=== PATIENT | male | born 2000 | race African-American/Black ===

== ENCOUNTER 2021-09-01 00:11 | Emergency (ER) | payer OTHER, SELFPAY ==
--- NOTE | ~2021-09-01 | XR_ITS ---
EXAMINATION: XR ANKLE, LEFT CLINICAL INFORMATION: Injury. COMPARISON: None. TECHNIQUE: AP, lateral, and mortise views of the left ankle. FINDINGS: Circumferential soft tissue swelling adjacent to the medial and lateral malleolus. Nonspecific bony outpouching in the dorsal surface of the talus only visualized on the lateral view. Also, nonspecific cortical irregularities in the medial surface of the talus visualized on the oblique view. Alignment is anatomic. XR/XR ankle LT min 3V IMPRESSION: Nonspecific osseous irregularities in the dorsal and medial surfaces of the talus which could avulsion fractures. Correlate for point tenderness. Diffuse soft tissue swelling. For evaluation of ligamentous/tendinous injuries consider correlation with an MR.
[2021-09-01 00:13] VITALS: BP 95/75; PULSE 75; RESP 18; TEMP 36.8; O2SAT 100; BMI 24.3
--- NOTE | 2021-09-01 01:01 | ED_ITS ---
HPI - Extremity Injury (Lower) General Chief Complaint: Extremity Injury, Lower Stated Complaint: L ankle broken ? Source: patient Mode of arrival: wheelchair Limitations: no limitations History of Present Illness HPI Narrative: 21-year-old male presents with left ankle pain after injury playing basketball. Stated he landed on his left ankle, had intense pain and blacked out and no longer has pain at this time. He does have some swelling but is unable to bear any weight and move the ankle. MD complaint: ankle injury Onset (ago): hour(s) (Within the hours of arrival) Injury: Left: ankle Type of Injury: inversion Place: other Severity: moderate Relieving factors: nothing Exacerbating factors: weight bearing, movement and palpation Associated symptoms: snap/pop sensation, swelling, numbness and unable to bear weight Other symptoms: none Treatments prior to arrival: cold therapy Related Data Allergies Allergy/AdvReac Type Severity Reaction Status Date / Time No Known Allergies Allergy Verified 09/01/21 00:13 Review of Systems 2 Review of Systems: Constitutional: No Fever, No Chills ENT/Mouth: No Ear Pain, No Hoarseness, No sore throat Eyes: No Eye Pain, No Swelling, No Redness, No Foreign Body Cardiovascular: No Chest Pain, No SOB Respiratory: No Cough, No Dyspnea Gastrointestinal: No Nausea, No Vomiting, No Diarrhea, No abdominal Pain Genitourinary: No Dysuria, No Hematuria Musculoskeletal: positive left ankle swelling and pain, No Myalgias, No Joint Swelling Skin: No Skin lacerations, No rash Neuro: No Weakness, No Numbness, No Paresthesias, No Loss of Consciousness, No Dizziness, No Headache Psych: No Anxiety/Panic, No Depression Heme/Lymph: no easy bruising, no Lymphadenopathy Endocrine: No Polyuria, No Polydipsia Yes all other systems are reviewed and are negative COUNT INCLUDES THE [facility] Past Medical History Attestation statement: The following information was validated with the patient. Source: old records reviewed Social History Social History Advance Directives: No Physical Exam Vital Signs: Vital Signs: Last Vital Signs Temp 98.2 F 09/01/21 00:13 Pulse 70 09/01/21 01:13 Resp 16 09/01/21 01:13 BP 100/64 09/01/21 01:13 Pulse Ox 100 09/01/21 01:13 BMI result Body Mass Index 24.3 Appearance: Alert. Oriented X3. No acute distress. Eyes: Pupils equal, round and reactive to light. ENT: Pharynx normal. Neck: Normal inspection. Neck supple. CVS: Normal heart rate and rhythm. Pulses normal. Respiratory: No respiratory distress. Breath sounds normal. Abdomen: Soft and nontender. Skin: Skin warm and dry. Normal skin color. Normal skin turgor. Extremities: Visible swelling and deformity to the left ankle. Brisk capillary refill in equal pulses. Significant decrease in flexion extension internal and external rotation to the left ankle. Tenderness to palpation to the dorsal aspect and medial malleolar process. Neuro: No motor deficit. No sensory deficit. Cranial nerves 2-12 intact. Course Course Course Narrative: 21-year-old male presents with left ankle pain and deformity. Patient was playing basketball and landed on his left ankle. Had intense pain when he landed, and was immediately unable to bear weight. He has decreased range of motion but is not complaining of pain at this time. X-rays highly suggestive of tendon or ligament tear or avulsion. 01:06 discussion with Orthopedics on-call, plan is for walker boot and follow-up in the office. Patient given slip for MRI as an outpatient. Patient was advised to call tomorrow to make an appointment. Patient verbalized understanding of and agrees to plan of care to discharge home. Verbalized understanding of signs and symptoms indicating need for emergent intervention Consultations Consultation #1: [place] Time: 01:00 MDM - Extremity Injury (Lower) MDM Narrative Medical decision making narrative: Ankle ligament and tendon injury Differential Diagnosis Differential diagnosis: Likely ankle sprain and strain and ankle fracture Medical Records Attestation: I reviewed the patient's medical records. Imaging Data Ankle x-ray: Attestation: I personally reviewed and interpreted this imaging study as follows: Radiologist's impression: EXAMINATION: XR ANKLE, LEFT CLINICAL INFORMATION: Injury.? COMPARISON: None.? TECHNIQUE: AP, lateral, and mortise views of the left ankle. FINDINGS: Circumferential soft tissue swelling adjacent to the medial and lateral malleolus. Nonspecific bony outpouching in the dorsal surface of the talus only visualized on the lateral view. Also, nonspecific cortical irregularities in the medial surface of the talus visualized on the oblique view. Alignment is anatomic.? XR/XR ankle LT min 3V IMPRESSION: Nonspecific osseous irregularities in the dorsal and medial surfaces of the talus which could avulsion fractures. Correlate for point tenderness. ? Diffuse soft tissue swelling. ? For evaluation of ligamentous/tendinous injuries consider correlation with an MR. Discharge Plan Discharge Clinical Impression: Tendon tear, ankle Patient Disposition: Home, Self-Care Instructions: Crutch Instructions (ED), R.I.C.E. Treatment (ED), Tendon Rupture (ED), Walking Boot (ED) Additional Instructions: Your evaluated for injuries to the left ankle. Your injuries are highly suspicious for tendon avulsion or tendon tear to the left ankle. Please keep the walker boot in place. Do not bear weight to the ankle. Follow-up with MRI in the morning. I ordered an MRI for you, please call make the appointment in the morning. You must follow-up with Orthopedics as you may need surgery for this injury. Please follow-up with Lauren WU or Dr. Marino. Thank you for choosing this emergency department for evaluation. Please follow-up with primary care physician as needed. Return to the emergency department for any new, concerning, or worsening symptoms. Referrals: Gregory Marino MD [Physician] - 2 days (Suspicion of left ankle tendon avulsion or tear) Lucia Cary PA-C [Physician Therapist] - 2 days (Suspicion of Left ankle tendon avulsion or tear ) Stand Alone Forms: Work/School Release Interventions: ED Discharge Assessment Last Done: 09/01/21 01:37 Discharge Date/Time: 09/01/21 01:39
[2021-09-01 01:13] VITALS: BP 100/64; PULSE 70; RESP 16; O2SAT 100
== END 2021-09-01 01:39 | disposition home or self-care (01) ==
PROVIDERS: Emergency Provider Internal Medicine
DX: S96.912A Strain of unspecified muscle and tendon at ankle and foot level, left foot, initial encounter (principal); X50.1XXA Overexertion from prolonged static or awkward postures, initial encounter; Y93.67 Activity, basketball; Y92.310 Basketball court as the place of occurrence of the external cause; Y99.9 Unspecified external cause status
CPT/HCPCS: 73610; 99283; 99284

== ENCOUNTER 2021-09-10 14:41 | Outpatient (REF) | payer OTHER, SELFPAY ==
--- NOTE | ~2021-09-10 | XR_ITS ---
EXAMINATION: XR TIBIA AND FIBULA, LEFT CLINICAL INFORMATION: Left leg pain. COMPARISON: None. TECHNIQUE: AP and lateral views of the left tibia and fibula were obtained. FINDINGS: No fracture. No osseous lesions. Normal alignment. Imaged portions of the ankle and knee are unremarkable. Bone mineralization is normal. XR/XR tibia fibula LT 2V IMPRESSION: Normal left tibia and fibula.
== END 2021-09-10 14:42 | disposition home or self-care (01) ==
LOC: HO.HOSX 14:41
PROVIDERS: Visit Provider Physician Assistant
DX: S92.155A Nondisplaced avulsion fracture (chip fracture) of left talus, initial encounter for closed fracture (principal); X50.1XXA Overexertion from prolonged static or awkward postures, initial encounter; Y93.67 Activity, basketball; Y92.9 Unspecified place or not applicable; Y99.8 Other external cause status
CPT/HCPCS: 73590; 99202

== ENCOUNTER 2021-09-20 16:37 | Outpatient (REF) | payer OTHER, SELFPAY ==
--- NOTE | ~2021-09-20 | MR_ITS ---
EXAMINATION: MR ANKLE WITHOUT CONTRAST, LEFT CLINICAL INFORMATION: Lateral left ankle pain. COMPARISON: Left ankle radiographs dated 09/01/2021 and left tibia and fibula radiographs dated 09/10/2021. TECHNIQUE: Multisequence MR imaging of the left ankle was obtained without contrast on a high-field strength scanner. FINDINGS: BONE AND ARTICULAR CARTILAGE: Marrow edema within the posterior aspect of the tibial plafond. Additional marrow edema within the medial malleolus. Marrow edema within the posterior aspect of the lateral malleolus. Marrow edema throughout the talar neck, most prominent along the medial aspect of the talar neck where there is mild cortical irregularity/spurring with adjacent soft tissue edema. No talar osteochondral lesion. ACHILLES TENDON: Minimal distal Achilles tendinosis without a measurable tendon tear. OTHER TENDONS: Mild fluid within the posterior tibialis and flexor digitorum longus tendon sheaths consistent with mild tenosynovitis. No transverse tendon tear. Flattening and longitudinal split tearing of the peroneal brevis tendon at the level of the lateral malleolus measuring up to 5.6 cm in craniocaudal dimension. Mild peroneal brevis and peroneal longus tenosynovitis. No transverse tendon tear or tendon retraction. Mild fluid within the anterior tibialis tendon sheath, consistent with mild tenosynovitis. LIGAMENTS: Complete tear of the anterior talofibular ligament with mild adjacent soft tissue edema. Moderate sprain/partial tear of the calcaneofibular ligament and more mild sprain/partial tear of the posterior talofibular ligament. Diffuse edema and signal heterogeneity throughout the deltoid ligament, consistent with a moderate sprain/partial tear. JOINT FLUID AND SOFT TISSUES: Small tibiotalar and posterior subtalar joint effusions. Medial and lateral as well as anterior subcutaneous edema. PLANTAR FASCIA: Normal. SINUS TARSI AND TARSAL TUNNEL: Normal. MR/MR ankle LT wo con IMPRESSION: 1. Irregular cortical spurring and fragmentation along the anteromedial aspect of the talar neck with marrow edema and adjacent soft tissue edema, which could represent an [id number] avulsive injury. Patchy marrow edema within the posterior tibial plafond as well as throughout the medial talus, consistent with osseous contusions. No additional fracture line. 2. Complete tear of the anterior talofibular ligament with a moderate sprain/partial tear of the calcaneofibular ligament and more mild sprain/partial tear of the posterior talofibular ligament. Reactive marrow edema within the lateral malleolus. 3. Moderate sprain/partial tear of the deltoid ligament with reactive marrow edema within the medial malleolus. 4. Flattening/longitudinal split tearing of the peroneal brevis tendon at the level of the lateral malleolus. Mild peroneal brevis, peroneal longus, posterior tibialis, and flexor digitorum longus tenosynovitis without a measurable tendon tear. Additionally, there is mild anterior tibialis tenosynovitis. 5. Minimal distal Achilles tendinosis without a measurable tendon tear. 6. Small tibiotalar and posterior subtalar joint effusions with medial, anterior, and lateral subcutaneous edema.
== END 2021-09-20 16:38 | disposition home or self-care (01) ==
LOC: HO.MRI 16:37
PROVIDERS: Visit Provider Physician Assistant
DX: S93.402A Sprain of unspecified ligament of left ankle, initial encounter (principal)
CPT/HCPCS: 73721